=== PATIENT | female | born 1950 | race Two or more races ===

== ENCOUNTER 2017-03-19 14:38 | Day surgery (SDC) | payer OTHER ==
[2017-03-19] MEDS ORDERED: MIDAZOLAM 1 MG/ML 2 ML INJ ×2 (15:18)
[2017-03-19] MEDS ORDERED: FENTAnyl 50 MCG/ML VIAL (15:18)
== END 2017-03-19 16:01 | disposition home or self-care (01) ==
LOC: GIL 14:38
DX: Z12.11 Encounter for screening for malignant neoplasm of colon (principal); K64.1 Second degree hemorrhoids
CPT/HCPCS: 45378